=== PATIENT | male | born 1985 | race Caucasian/White ===

== ENCOUNTER 2022-11-02 10:19 | Outpatient (CLI) | payer OTHER ==
--- NOTE | 2022-11-02 10:53 | Sleep Patient Instructions ---
Sleep Center Visit Summary - Patient Visit Information Reason for Visit: Initial consult for evaluation of sleep disordered breathing and other sleep issues. - Patient Instructions Instructions Attached: Sleep Study, Sleep Study Home Monitor, Sleep Clinic Visit Additional Instructions: You will be completing a sleep study, either an in-lab polysomnography (PSG) or home sleep study (HST). You will follow-up in the sleep care office after the sleep study is completed to hear the results and talk about therapy, if needed. You will be called by our office staff to schedule this appointment, but you may contact us with any questions. - Clinic Information Contact: Merged with [facility] [address] [place] [address] [email or web address] T: [phone]
--- NOTE | 2022-11-02 10:56 | SLEEP CARE CONSULTATION ---
Information from patient questionnaire entered by Gisele Ribera. I have reviewed and concur with the information entered by Gisele Ribera. This document represents the service I personally performed and the decisions made by me, Luma Leo ARNP. History of Present Illness Service Date and Time: 11/02/2022 1019 Reason for Visit: New patient Chief Complaint: reports: Unrefreshed sleep, Snoring, Excessive daytime sleepiness, Observed pauses in breathing, Fatigue Date of Onset: YRS Usual bedtime: 1030 Time it takes to fall asleep: 15-30MIN Snores at night: Yes Observed to quit breathing while asleep: Yes Sleeps alone due to snoring: Yes Number of times waking at night: 1 Reasons for waking at night: reports: Choking, Snoring (only a couple times), Gasping for air, Other (NOISE) Toss, Turn, or Twitch while sleeping: Yes Recalls having dreams: Yes Usually gets out of bed at: 7AM Feels refreshed in the morning: No Morning headache: Yes (1-2 times a month, last about 1-2 hours) Sleepy or fatigued during the day: Yes Ever fallen asleep while driving: Yes (drowsy driving; no accidents) Takes day naps: No Dreams during day naps: Yes Prior sleep studies: Yes Additional HPI information: I had the pleasure of seeing LAYLA GARCIA today regarding the possibility of him having a sleep disorder. His current complaints are daytime sleepiness, fatigue, observed pauses in breathing, snoring and unrefreshed sleep. [facility]. He has 2 surgeries on his nose and is still snoring loudly at night. He states he feels exhausted all day. His has seen him stop breathing at night. He has woke up feeling like he was choking and gasping for air, too. - Parasomnia Symptoms Ever been unable to move upon waking from sleep: No Walks in sleep: No Talks in sleep: No Ever acted out dreams in sleep: Yes (kicked out with leg and fell out of bed, recent; has happened before rarely) Ever felt weak in the knees when startled or emotional: No Bothered by creepy, crawly, restless sensations in legs: No Problems with memory or concentration: Yes (both, but concentration more) Subjective Initial [place] Sleepiness Scale score: 9 (11/02/22) Past Medical History Past Medical History: reports: Anxiety, Asthma, Depression, Mood disorder (PTSD) Social History The patient's occupation is a [employer]. Patient is and lives in [place]. Have you smoked in the past 12 months: No Alcohol use: Yes Alcohol amount and frequency: 1-2 1-2 A WEEK Caffeine use: Yes Caffeine amount and frequency: 160 MG TWICE DAILY Family History Family history of sleep disordered breathing: Yes Family Hx Sleep Apnea: Mother: Snoring, Father: Snoring, Sibling: Snoring Allergies and Home Medications Known drug allergies: No Drug allergies reviewed: Yes Home medication list reviewed: Yes Allergy and home medication list: Medications: Fluoxetine 60 mg daily Lamotrigine 200 mg daily Zyrtec daily Review of Systems Weight gain over past 5 years: 20 Weight loss over past 5 years: 20 Cardiovascular: denies: high blood pressure Neurological: reports: headaches Psychiatric: reports: anxiety, depression Ear/Nose/Throat: reports: nasal congestion, sinus problems, tonsillectomy, wisd om teeth removed Immunologic: reports: sneezing, allergies to food or environment Physical Exam Vital signs obtained and entered by: GISELE Shahid MA Blood Pressure: 118/72 (LEFT ARM) Cuff size: regular Heart Rate: 61 O2 Saturation: 95 Height: 6 ft 2 in Weight: 278 lb Body Mass Index: 35.6 BMI Classification: Obese Neck circumference: 17.5 Mouth and throat: narrow oropharynx Soft palate: long Hard palate: normal Uvula: normal Uvula visualization: 25% Mallampati Class III Tongue: enlarged in size with teeth baca on lateral edges Tonsils: absent bilaterally Neck: normal w/o lymphadenopathy or thyromegaly Heart: regular rate and rhythm Lungs: clear bilaterally Impression and Plan 1. Suspected Obstructive Sleep Apnea-Hypopnea Syndrome, as suggested by a history of loud and irregular snoring, observed cessation of breath while as leep, unrefreshed sleep, cognitive impairment, and excessive daytime sleepiness. Narrow oropharynx and obesity are common predisposing factors for obstructive sleep apnea-hypopnea syndrome. I recommend proceeding to polysomnography to confirm the diagnosis and to assess severity. If the patient has significant sleep disordered breathing, a manual CPAP titration study will also be performed to find the optimal treatment pressure. I informed the patient of what the sleep studies involve and after some discussion, obtained agreement to proceed. The pathophysiology of obstructive sleep apnea-hypopnea syndrome was discussed with the patient and health risks of cardiovascular and cerebrovascular disease if not treated. Risks of drowsy driving discussed in detail and patient advised to avoid long distance driving and to ladle puller at the first sign of drowsiness. Patient agreed to plan. * Schedule polysomnography. * Avoid long distance driving or driving when feeling sleepy. * Avoid alcohol, sedative and muscle relaxant around bedtime. * Attempt to lose weight. * Review instructions provided by trained office staff on how to prepare for the sleep study. * Return for follow-up after sleep study completed. Counseling Topics: Weight loss health impact Visit Type: In Office Time Spent with Patient (minutes): 34 Provider Statement: I spent 100% of the Face to Face Visit with the patient with greater than 50% spent counseling the patient and coordination of care.
[2022-11-02 11:02] VITALS: BP 118/72; O2SAT 95
== END 2022-11-02 10:20 | disposition home or self-care (01) ==
LOC: SC 10:19
PROVIDERS: ATTEND Nurse Practitioner Family
DX: R06.83 Snoring (principal); R06.81 Apnea, not elsewhere classified; G47.8 Other sleep disorders; R41.89 Other symptoms and signs involving cognitive functions and awareness; G47.10 Hypersomnia, unspecified; E66.9 Obesity, unspecified; Z68.35 Body mass index [BMI] 35.0-35.9, adult
CPT/HCPCS: 99203; 99212

== ENCOUNTER 2023-01-10 12:58 | Outpatient (CLI) | payer OTHER | END 2023-01-10 12:59 | disposition home or self-care (01) | LOC: SC 12:58 | PROVIDERS: ATTEND Nurse Practitioner Family | DX: G47.33 Obstructive sleep apnea (adult) (pediatric) (principal); R09.02 Hypoxemia; F32.A Depression, unspecified; E66.9 Obesity, unspecified; Z68.35 Body mass index [BMI] 35.0-35.9, adult | CPT/HCPCS: 95806 ==